=== PATIENT | male | born 1950 | race Caucasian/White ===

== ENCOUNTER 2024-07-23 13:30 | Outpatient (RCR) | payer MEDICARE, OTHER, SELFPAY ==
--- NOTE | 2024-06-24 17:06 | HP.PTEVAL_ITS ---
Patient's Visit Information Visit Information Visit Information: ADELITA AGUILERA is a 73 year old M referred to Physical Therapy by Dr. Bright Crawford MD with a diagnosis of GAIT ABNORMALITY. Date of Evaluation: 06/18/24 Physical Therapist: Melissa Crouch PT, Cert MDT Visit Plan Frequency: 2-3x /Week Duration: 4-6 Weeks Plan: BALANCE TRAINING WITH HORIZONTAL HEAD TURNS, VERTICAL HEAD TURNS, PIVOTS, NARROW BASE OF SUPPORT, EYES CLOSED AND ON STEPS. WRITTEN HEP FOR BALANCE AND LE FLEXIBILITY. Subjective Subjective: Work/Leisure: RETIRED. 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 SHE GOES TO ADULT DAYCARE 3 DAYS A WEEK. Present symptoms: PATIENT REPORTS HE HAS TO BE CAREFUL WALKING BECAUSE SOMETIME HE FEELS LIKE HE IS GOING TO FALL OVER. HE DEINES ANY RECENT FALLS EXCEPT THE OTHER DAY WHEN HE DECIDED TO STAND ON THE BED TO CHANGE A LIGHT BULB. WHEN HE WAS LOOKING UP AND REACHING OVER-HEAD HE LOST HIS BALANCE AND FELL OFF THE BED BACKWARDS LANDING ON HIS BACK. HE DENIES HITTING HIS HEAD AND SERIOUSLY INJURING HIMSELF ENOUGH TO NEED TO SEE A DOCTOR. HE REPORTS HE IS JUST SORE IN HIS LOW BACK NOW AND IT IS GETTING BETTER. HE REPORTS HE IS NOT HERE FOR PAIN. Present since: HIS BALANCE DIFFICULTY STARTED ABOUT A YEAR AGO Is it getting better, worse or staying the same: STAYING THE SAME Commenced as a result of: NO APPARENT REASON Symptoms at onset: VERING TO ONE SIDE WHEN TURNING CORNERS. Previous history/Previous treatment: NO PRIOR HISTOR OR TREATMENT FOR BALANCE. PATIENT DOES NOT KNOW OF ANY SPECIFIC FALLS HE HAS HAD DUE TO BALANCE. Treatment this episode: HE REPORTS HE STARTED PHYSICAL THERAPY FOR ABOUT 4 VISITS IN [place] BECAUSE THAT IS WHERE HIS REFERRAL WAS INITALLY SENT. THEY WERE WORKING ON HIS LOWER EXTREMITY STRENGTH AND THEN HE DECIDED HE WANTED TO SWITCH AND TRY PHYSICAL THERAPY HERE BECAUSE HE WASN'T SURE IF THAT WAS WHAT HE NEEDED FOR HIS BALANCE. 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 HE DOES NOT KNOW HOW LONG IT TAKES HIM TO WALK THE 4 LAPS. Objective Objective: THIS PATIENT AMBULATES INDEP'LY INTO PT WITH SLOW CADANCE, NO AD'S A AND NO LOB. HE IS ABLE TO SLS X > 10 SEC EA LE WITHOUT UE ASSIST. SEE SPECIAL TESTS BELOW. STRENGTH: HEATH LE'S GROSSLY 5/5 WITH MMT'ING. ROM: HEATH LE HS AND GASTROC-SOLEUS COMPLEX TIGHTNESS. CORE STRENGTH: FAIR. Balance/Special Test Scores Functional Gait Assessment Score: 23 % Disability: 23.3400 CATSIB Score (Max score 120 seconds): 120 Lower Extremity Functional Score: 78 TUG Test Time Seconds: 16.81 30 Second Chair Rise Test Seconds: 10 Goals Goal 1:: GAIT ASSESSMENT SCORE OF 25 OR ABOVE Goal Time Frame: 4-6 Weeks Goal 2:: HEP Goal Time Frame: 4-6 Weeks Rehabilitation Potential Physical Therapy Diagnosis: GAIT IMBALANCE AND LE STIFFNESS Anticipated Interventions Patient/Client Instruction: Educate patient on: Condition, Plan of Care and Risk Factors For the Purpose of:: To improve self management Therapeutic Exercise to Include: Strength training, Balance training, Flexibilty training, Gait and locomotor training and Neuromotor development For the Purpose of:: To increase ROM, To improve muscle performance and motor function, To improve ability of physical actions for home/community/work/leis ure, To improve gait and locomotor functions, To increase flexibility/ROM, To improve balance, To improve safety with gait and To improve self management Text: Thank you for the opportunity to evaluate your patient. For Medicare and Medicare HMO plans, please review the plan of care and approve it. It will need to be FAXED BACK to us at [phone] for Medicare purposes. For Medicare only, by signing this I certify the plan of care. Please let me know if there are questions or concerns regarding this plan of care. Physician Signature: Date:
--- NOTE | 2024-07-23 14:25 | HP.PTDCSUM ---
Discharge Summary D/C summary: It has been my pleasure to treat ADELITA AGUILERA referred by Dr. Bright Crawford MD, with the diagnosis of GAIT ABNORMALITY for a total of 7 visit(s). Discharge Date: 07/23/24 Please see the following information for a summary of their discharge status. Subjective Subjective: PATIENT REPORTS HE HAS STARTED TO GO TO A GYM TO DO THE LOWER BODY EX'S HE HAS LEARNED SO HE FEELS LIKE HE IS STRONGER. HE STATES HE HAS GOT NEW SHOES ABOUT A WEEK AGO THAT HE FEELS LIKE ARE MAKING HIM FEEL UNDTEADY. Overall Improvement % Improvement: 10 Objective Objective/Function: PATIENT WAS SEEN TODAY FOR RE-ASSESSMENT OF PROGRESS TOWARD THE SET PT GOALS AND THE NEED FOR FURTHER PHYSICAL THERAPY VS READINESS FOR DISCHARGE. TESTING SHOWS SMALL IMPROVEMENTS IN STRENGTH AND BALANCE TODAY BUT PATIENT IS NOT REPORTING MUCH IMRPROVEMENT IN FEELING MORE BALANCED. HE HAS NOT REPORTED ANY RECENENT FALLS. HE PLANS TO CONTINUE EXERCISING AT THE [facility] CLOSE TO HIS HOME AT THIS TIME. THIS PATIENT AMBULATES INDEP'LY INTO PT WITH FAIR CADANCE, NO AD'S A AND NO LOB. SEE SPECIAL TESTS BELOW. STRENGTH: HEATH LE'S GROSSLY 5/5 WITH MMT'ING. HE IS INDEP WITH A GYM EX PROGRAM. Goals Goal 1:: GAIT ASSESSMENT SCORE OF 25 OR ABOVE Goal Progress: Goal Met Goal 2:: HEP Goal Progress: Goal Met Plan Plan: D/C TO INDEP EX AND PHYSICIAN FOLLOW UP 07/30/24. D/C Information d/c sentence: If there are questions or concerns regarding this patient's physical therapy, please feel free to call me at [phone]. Thank you for the referral of this patient. Sincerely, Melissa Crouch, PT, Cert MDT Balance/Gait/Functional tests Balance/Special Test Scores Functional Gait Assessment Score: 26 % Disability: 13.3400 CATSIB Score (Max score 120 seconds): 120 Lower Extremity Functional Score: 77 TUG Test Time Seconds: 13.13 Tug Test: <20 sec.=mostly independent 30 Second Chair Rise Test Seconds: 12 Improvement % Improvement: 10
== END 2024-07-23 14:48 | disposition home or self-care (01) ==
LOC: PT 13:30
PROVIDERS: PCP Family Medicine; Visit Provider Internal Medicine Endocrinology, Diabetes & Metabolism
DX: R26.89 Other abnormalities of gait and mobility (principal)
CPT/HCPCS: 97110; 97112; 97162; 97530